=== PATIENT | male | born 1985 | race Caucasian/White ===

== ENCOUNTER 2017-06-22 15:26 | Inpatient (IN) | payer OTHER ==
[~2017-06-22] VITALS: Ht 185.4 cm; Wt 80.3 kg
[2017-06-22 15:37] VITALS: BP 119/76
[2017-06-22 16:09] LABS: BASO # 0.1 10*3/uL (0.0-0.1); BASO % 0.7 % (0.0-1.0); EOS # 0.1 10*3/uL (0.0-0.4); EOS % 1.4 % (1.0-4.0); HEMATOCRIT 40.7 % (42.0-52.0); HEMOGLOBIN 13.7 g/dl (14.0-18.0); LYMPH # 2.9 10*3/uL (1.3-4.4); LYMPH % 39.7 % (27.0-41.0); MEAN CELL VOLUME 96.2 fl (80.0-94.0); MEAN CORPUSCULAR HGB 32.4 pg (27.0-31.0); MEAN CORPUSCULAR HGB CONC 33.7 g/dl (33.0-37.0); MEAN PLATELET VOLUME 9.5 fl (9.6-12.3); MONO # 0.4 10*3/uL (0.1-1.0); MONO % 6.1 % (3.0-9.0); NEUT # 3.8 10*3/uL (2.3-7.9); NEUT % 51.8 % (47.0-73.0); PLATELET COUNT AUTOMATED 211 10*3/uL (130-400); RED BLOOD COUNT 4.23 10*6/uL (4.50-5.90); RED CELL DISTRI WIDTH 12.7 % (0-14.5); WHITE BLOOD COUNT 7.3 10*3/uL (4.8-10.8)
[2017-06-22 16:25] LABS: ALBUMIN 3.7 gm/dl (3.1-4.5); ALKALINE PHOSPHATASE 58 U/L (45-117); BILIRUBIN, TOTAL 0.2 mg/dl (0.2-1.0); BUN 17 mg/dl (7-24); CARBON DIOXIDE 28 mmol/L (21-32); CHLORIDE 105 mmol/L (98-107); EST GLOM FILT AFRICAN AMERICAN > 60 ml/min; GLUCOSE 86 mg/dL (65-99); POTASSIUM 4.6 mmol/L (3.5-5.1); SGOT/AST 16 IU/L (3-35); SGPT/ALT 21 U/L (12-78); SODIUM 138 mmol/L (136-145); TOTAL PROTEIN 7.3 gm/dL (6.4-8.2)
[2017-06-22 16:35] LABS: URINE AMPHETAMINES < 1000 (1000ng/ml); URINE BARBITURATES > 200 (200ng/ml); URINE COCAINE < 300 (300ng/ml)
[2017-06-22 16:36] LABS: BILIRUBIN NEGATIVE (NEGATIVE); BLOOD NEGATIVE (NEGATIVE); CLARITY CLEAR (CLEAR); COLOR YELLOW (YELLOW); GLUCOSE NEGATIVE (NEGATIVE); KETONE NEGATIVE (NEGATIVE); PROTEIN TRACE (NEGATIVE); SPECIFIC GRAVITY 1.025 (1.005-1.030)
[2017-06-22 16:37] LABS: LEUKO ESTERASE NEGATIVE (NEGATIVE); NITRITE NEGATIVE (NEGATIVE); UROBILINOGEN 0.2 E.U./dl (0.2-1.0)
[2017-06-22 16:42] LABS: HYALINE CAST 0-2; URINE REFLEX COMMENT NO (NO)
[2017-06-22 17:38] LABS: ALBUMIN 3.8 gm/dl (3.1-4.5); ALKALINE PHOSPHATASE 57 U/L (45-117); BILIRUBIN, TOTAL 0.2 mg/dl (0.2-1.0); BUN 17 mg/dl (7-24); CARBON DIOXIDE 29 mmol/L (21-32); CHLORIDE 106 mmol/L (98-107); EST GLOM FILT AFRICAN AMERICAN > 60 ml/min; GLUCOSE 85 mg/dL (65-99); POTASSIUM 4.9 mmol/L (3.5-5.1); SGOT/AST 17 IU/L (3-35); SGPT/ALT 20 U/L (12-78); SODIUM 139 mmol/L (136-145); TOTAL PROTEIN 7.1 gm/dL (6.4-8.2)
[2017-06-22 17:46] LABS: PROTHROMBIN TIME 10.1 SECONDS (9.0-12.4)
[2017-06-22 17:53] VITALS: BP 126/76
[2017-06-22 18:00] VITALS: BP 126/76
[2017-06-22] MEDS ORDERED: NEURONTIN800 MG PO (19:07)
[2017-06-22] MEDS ORDERED: XANAX0.5 MG PO (19:08)
[2017-06-22 20:00] VITALS: BP 129/71
[2017-06-23] VITALS: BP 105/61
[2017-06-23 08:00] VITALS: BP 133/82
[2017-06-23 12:00] VITALS: BP 140/75
[2017-06-23 16:00] VITALS: BP 110/53
== END 2017-06-23 17:47 | disposition left against medical advice (07) | DRG 894 ==
LOC: ED 15:26 → 5E 16:40 → EDHOLD 16:40 → 5E 17:29
PROVIDERS: Internal Medicine; Registered Nurse
DX: F11.23 Opioid dependence with withdrawal (principal); F13.10 Sedative, hypnotic or anxiolytic abuse, uncomplicated; D53.9 Nutritional anemia, unspecified; Z53.21 Procedure and treatment not carried out due to patient leaving prior to being seen by health care provider; F41.9 Anxiety disorder, unspecified; F17.200 Nicotine dependence, unspecified, uncomplicated; Z71.6 Tobacco abuse counseling; Z83.6 Family history of other diseases of the respiratory system

== ENCOUNTER 2017-12-31 15:58 | Inpatient (IN) | payer MEDICAID ==
[~2017-12-31] VITALS: Ht 185.4 cm; Wt 83.7 kg
[~2017-12-31 15:58] MED LIST: NEURONTIN800 MG PO; XANAX0.5 MG PO
[2017-12-31 17:15] VITALS: BP 97/68
[2017-12-31 17:51] LABS: BASO % 0.6 % (0.0-1.0); EOS # 0.1 10*3/uL (0.0-0.4); EOS % 1.8 % (1.0-4.0); HEMATOCRIT 42.6 % (42.0-52.0); HEMOGLOBIN 14.3 g/dl (14.0-18.0); LYMPH # 1.8 10*3/uL (1.3-4.4); LYMPH % 27.5 % (27.0-41.0); MEAN CELL VOLUME 97.9 fl (80.0-94.0); MEAN CORPUSCULAR HGB 32.9 pg (27.0-31.0); MEAN CORPUSCULAR HGB CONC 33.6 g/dl (33.0-37.0); MEAN PLATELET VOLUME 9.9 fl (9.6-12.3); MONO # 0.4 10*3/uL (0.1-1.0); MONO % 5.2 % (3.0-9.0); NEUT # 4.3 10*3/uL (2.3-7.9); NEUT % 64.8 % (47.0-73.0); PLATELET COUNT AUTOMATED 264 10*3/uL (130-400); RED BLOOD COUNT 4.35 10*6/uL (4.50-5.90); RED CELL DISTRI WIDTH 13.2 % (0-14.5); WHITE BLOOD COUNT 6.7 10*3/uL (4.8-10.8)
[2017-12-31 17:58] LABS: INTERNATIONAL NORM RATIO 1.1 (2.0-3.5)
[2017-12-31 18:05] LABS: ALBUMIN 3.6 gm/dl (3.1-4.5); ALKALINE PHOSPHATASE 91 U/L (45-117); BUN 11 mg/dl (7-24); CHLORIDE 103 mmol/L (98-107); CREATININE 1.04 mg/dL (0.70-1.30); POTASSIUM 4.9 mmol/L (3.5-5.1); SGOT/AST 231 IU/L (3-35); SGPT/ALT 574 U/L (12-78); SODIUM 139 mmol/L (136-145); TOTAL PROTEIN 7.5 gm/dL (6.4-8.2)
[2017-12-31 18:07] LABS: ETHYL ALCOHOL < 3.0 mg/dl (<3)
[2017-12-31 18:43] LABS: BILIRUBIN NEGATIVE (NEGATIVE); BLOOD NEGATIVE (NEGATIVE); CLARITY SL CLOUDY (CLEAR); COLOR YELLOW (YELLOW); GLUCOSE NEGATIVE (NEGATIVE); KETONE NEGATIVE (NEGATIVE); LEUKO ESTERASE NEGATIVE (NEGATIVE); NITRITE NEGATIVE (NEGATIVE); PH 6.5 (5.0-9.0)
[2017-12-31 18:48] LABS: RBC 0-2 rbc/hpf (0-2)
[2017-12-31 18:49] LABS: BACTERIA TRACE; EPITHELIAL CELLS 0-2
[2017-12-31 18:58] LABS: URINE AMPHETAMINES < 1000 (1000ng/ml); URINE BARBITURATES < 200 (200ng/ml); URINE BENZODIAZEPINES > 200 (200ng/ml); URINE CANNABINOIDS (THC) < 50 (50ng/ml); URINE COCAINE < 300 (300ng/ml); URINE METHADONE < 300 (300ng/ml); URINE OPIATES > 300 (300ng/ml)
[2017-12-31 18:59] LABS: URINE PHENCYCLIDINE < 25 (25ng/ml)
[2017-12-31 20:58] VITALS: BP 108/61
[2018-01-01] VITALS: BP 114/50
[2018-01-01 04:00] VITALS: BP 102/50
[2018-01-01 08:54] VITALS: BP 117/52
[2018-01-01 12:00] VITALS: BP 92/50
[2018-01-01 16:00] VITALS: BP 100/50
[2018-01-01 20:00] VITALS: BP 111/61
[2018-01-02] VITALS: BP 110/56
[2018-01-02 07:42] VITALS: BP 110/61
[2018-01-02 16:00] VITALS: BP 156/80
[2018-01-02 20:00] VITALS: BP 121/62
[2018-01-03] VITALS: BP 118/74
[2018-01-03 08:00] VITALS: BP 102/63
== END 2018-01-03 11:45 | disposition home or self-care (01) | DRG 897 ==
LOC: 5E 15:58
PROVIDERS: Family Medicine
DX: F11.23 Opioid dependence with withdrawal (principal); B19.20 Unspecified viral hepatitis C without hepatic coma; F13.10 Sedative, hypnotic or anxiolytic abuse, uncomplicated; F41.9 Anxiety disorder, unspecified; F43.10 Post-traumatic stress disorder, unspecified; F14.90 Cocaine use, unspecified, uncomplicated; M54.6 Pain in thoracic spine; G89.29 Other chronic pain; Z72.0 Tobacco use; Z71.6 Tobacco abuse counseling; Z83.6 Family history of other diseases of the respiratory system; Z72.89 Other problems related to lifestyle

== ENCOUNTER 2018-06-08 20:33 | Inpatient (IN) | payer OTHER ==
[~2018-06-08] VITALS: Ht 185.4 cm; Wt 77.1 kg
[2018-06-08 20:59] VITALS: BP 114/67
[2018-06-08 21:11] LABS: BILIRUBIN 1+ (NEGATIVE); BLOOD NEGATIVE (NEGATIVE); CLARITY SL CLOUDY (CLEAR); COLOR YELLOW (YELLOW); GLUCOSE NEGATIVE (NEGATIVE); KETONE NEGATIVE (NEGATIVE); LEUKO ESTERASE NEGATIVE (NEGATIVE); NITRITE NEGATIVE (NEGATIVE); PH 5.5 (5.0-9.0); SPECIFIC GRAVITY >= 1.030 (1.005-1.030)
[2018-06-08 21:16] LABS: BACTERIA TRACE; HYALINE CAST 41-50
[2018-06-08 21:21] LABS: URINE AMPHETAMINES < 1000 (1000ng/ml); URINE BARBITURATES > 200 (200ng/ml); URINE BENZODIAZEPINES > 200 (200ng/ml); URINE CANNABINOIDS (THC) > 50 (50ng/ml); URINE COCAINE < 300 (300ng/ml); URINE METHADONE < 300 (300ng/ml); URINE OPIATES > 300 (300ng/ml)
[2018-06-08 21:25] LABS: URINE PHENCYCLIDINE < 25 (25ng/ml)
[2018-06-08 21:34] LABS: BASO # 0.1 10*3/uL (0.0-0.1); BASO % 0.6 % (0.0-1.0); EOS # 0.3 10*3/uL (0.0-0.4); EOS % 2.3 % (1.0-4.0); HEMATOCRIT 35.8 % (42.0-52.0); HEMOGLOBIN 12.2 g/dl (14.0-18.0); LYMPH # 3.1 10*3/uL (1.3-4.4); LYMPH % 25.2 % (27.0-41.0); MEAN CELL VOLUME 95.7 fl (80.0-94.0); MEAN CORPUSCULAR HGB 32.6 pg (27.0-31.0); MEAN CORPUSCULAR HGB CONC 34.1 g/dl (33.0-37.0); MEAN PLATELET VOLUME 9.8 fl (9.6-12.3); MONO # 0.7 10*3/uL (0.1-1.0); MONO % 5.5 % (3.0-9.0); NEUT # 8.2 10*3/uL (2.3-7.9); NEUT % 66.2 % (47.0-73.0); PLATELET COUNT AUTOMATED 200 10*3/uL (130-400); RED BLOOD COUNT 3.74 10*6/uL (4.50-5.90); RED CELL DISTRI WIDTH 12.8 % (0-14.5); WHITE BLOOD COUNT 12.4 10*3/uL (4.8-10.8)
[2018-06-08 21:58] LABS: ALBUMIN 3.5 gm/dl (3.1-4.5); ALKALINE PHOSPHATASE 52 U/L (45-117); BUN 11 mg/dl (7-24); CHLORIDE 106 mmol/L (98-107); CREATININE 1.08 mg/dL (0.70-1.30); POTASSIUM 3.6 mmol/L (3.5-5.1); SGOT/AST 17 IU/L (3-35); SGPT/ALT 18 U/L (12-78); SODIUM 142 mmol/L (136-145); TOTAL PROTEIN 6.9 gm/dL (6.4-8.2)
[2018-06-08 21:59] LABS: ACETAMINOPHEN (TYLENOL) < 2.0 ug/ml (10-30); ETHYL ALCOHOL < 3.0 mg/dl (<3); TROPONIN I < 0.015 ng/ml (<0.045)
[2018-06-08 22:00] VITALS: BP 116/67
[2018-06-08 22:35] VITALS: BP 120/77
[2018-06-08 22:54] VITALS: BP 120/77
[2018-06-09] VITALS: BP 118/58
[2018-06-09 04:00] VITALS: BP 119/65
[2018-06-09 08:00] VITALS: BP 110/68
[2018-06-09 12:00] VITALS: BP 128/59
[2018-06-09 16:00] VITALS: BP 118/68
[2018-06-28] MEDS ORDERED: Motrin,Rufen800 MG PO (13:46)
== END 2018-06-09 19:30 | disposition left against medical advice (07) | DRG 894 ==
LOC: ED 20:33 → 5E 22:09 → EDHOLD 22:09 → 5E 22:30
PROVIDERS: Nurse Practitioner Family
DX: F11.23 Opioid dependence with withdrawal (principal); B19.20 Unspecified viral hepatitis C without hepatic coma; D53.9 Nutritional anemia, unspecified; D72.829 Elevated white blood cell count, unspecified; F12.90 Cannabis use, unspecified, uncomplicated; F14.90 Cocaine use, unspecified, uncomplicated; F13.10 Sedative, hypnotic or anxiolytic abuse, uncomplicated; G25.81 Restless legs syndrome; R00.1 Bradycardia, unspecified; R73.9 Hyperglycemia, unspecified; F11.229 Opioid dependence with intoxication, unspecified; R80.9 Proteinuria, unspecified; R82.71 Bacteriuria; F43.10 Post-traumatic stress disorder, unspecified; F41.1 Generalized anxiety disorder; M54.9 Dorsalgia, unspecified; G89.29 Other chronic pain; Z72.0 Tobacco use; Z71.6 Tobacco abuse counseling; Z87.81 Personal history of (healed) traumatic fracture; Z83.6 Family history of other diseases of the respiratory system